=== PATIENT | female | born 1990 | race Caucasian/White ===

== ENCOUNTER 2016-07-20 10:53 | Day surgery (SDC) | payer OTHER ==
[~2016-07-20] VITALS: Ht 165.1 cm; Wt 68.0 kg
[~2016-07-20 10:53] MED LIST: AMOXICILLIN500 MG PO
[2016-07-20 11:32] VITALS: BP 123/84
[2016-07-20] MEDS ORDERED: ENDOCET 5-3251 EACH PO (12:55)
[2016-07-20 15:12] VITALS: BP 102/71
[2016-07-20 16:10] VITALS: BP 97/54
== END 2016-07-20 16:35 | disposition home or self-care (01) ==
LOC: SDC 10:53
PROC: 10D17ZZ Extraction of Products of Conception, Retained, Via Natural or Artificial Opening (ICD-10-PCS; principal; 2016-07-20)
DX: O02.1 Missed abortion (principal)
CPT/HCPCS: 88305; J0131; J1100; J1170; J1200; J1885; J2405; J3010

== ENCOUNTER 2017-09-19 05:06 | Inpatient (IN) | payer OTHER ==
[2017-09-19] VITALS (7 sets, daily range): BP systolic 97–116; BP diastolic 46–64
[~2017-09-19] VITALS: Ht 165.1 cm; Wt 92.7 kg
[~2017-09-19 05:06] MED LIST changes: +ENDOCET 5-3251 EACH PO; +FOLIC ACID0.8 MG PO; +IRON325 M1 PO; +PRENATAL VITAM1 EA10 PO; +VITAMIN D31000 UNIT PO
[2017-09-19 06:18] LABS: HEMOGLOBIN 11.7 G/DL (11.9-15.5); MCH 29.1 PG (29.0-34.0); MCHC 33.4 G/DL (30.0-36.0); MCV 87.1 FL (83-99); PLATELET COUNT 251 K/uL (156-360); RBC DIS.WIDTH-CV 14.2 % (11.8-14.6); RBC DIS.WIDTH-SD 45.1 % (39-53); RED BLOOD COUNT 4.02 M/uL (3.80-5.20); WHITE BLOOD COUNT 11.2 K/uL (4.1-10.2)
[2017-09-20 03:00] VITALS: BP 103/51
[2017-09-20 07:04] LABS: BASOPHIL (%) 0.2 % (0-1); EOSINOPHIL (%) 1.1 % (0-5); EOSINOPHIL COUNT 0.1 K/uL (0-0.3); HEMATOCRIT 26.8 % (36.0-46.0); IMMATURE GRANULOCYTE (%) 0.6 % (0.0-0.7); LYMPHOCYTE COUNT 1.4 K/uL (1.0-2.8); MCH 29.1 PG (29.0-34.0); MCHC 33.2 G/DL (30.0-36.0); MCV 87.6 FL (83-99); MONOCYTE (%) 9.1 % (3-12); MONOCYTE COUNT 0.5 K/uL (0-0.8); NEUTROPHIL COUNT 3.5 K/uL (1.8-6.4); RBC DIS.WIDTH-CV 14.3 % (11.8-14.6); RBC DIS.WIDTH-SD 45.1 % (39-53); WHITE BLOOD COUNT 5.4 K/uL (4.1-10.2)
[2017-09-20 07:05] VITALS: BP 115/58
[2017-09-20 07:08] LABS: RED BLOOD COUNT 3.06 M/uL (3.80-5.20)
[2017-09-20 07:09] LABS: HEMOGLOBIN 8.9 G/DL (11.9-15.5)
[2017-09-20 07:26] LABS: PLAT.SUFFICIENCY ADEQUATE; PLATELET CLUMPS PRESENT - PLATELET COUNT APPEARS ADQ.; PLATELET COUNT UNABLE TO REPORT K/uL (156-360)
[2017-09-20 11:10] VITALS: BP 105/59
[2017-09-20 15:23] VITALS: BP 117/62
[2017-09-20 20:28] VITALS: BP 123/63
[2017-09-20 23:46] VITALS: BP 108/55
[2017-09-21 02:34] VITALS: BP 128/58
[2017-09-21] MEDS ORDERED: IBUPROFEN800 MG PO (09:55)
[2017-09-21] MEDS ORDERED: PERCOCET 5/31 TABLET PO (09:57)
== END 2017-09-21 14:40 | disposition home or self-care (01) | DRG 765 ==
LOC: 2WEST 05:06 → 2SOUTH 13:32 → 2WEST 09-20 15:55
PROVIDERS: Obstetrics & Gynecology Obstetrics
PROC: 10D00Z1 Extraction of Products of Conception, Low, Open Approach (ICD-10-PCS; principal; 2017-09-19)
DX: O99.02 Anemia complicating childbirth (principal); O34.211 Maternal care for low transverse scar from previous cesarean delivery; D62 Acute posthemorrhagic anemia; Z3A.39 39 weeks gestation of pregnancy; Z37.0 Single live birth; O99.62 Diseases of the digestive system complicating childbirth; K66.0 Peritoneal adhesions (postprocedural) (postinfection)
CPT/HCPCS: 85025; 85027; 86850; 86900; 86901; 87086; J0131; J0330; J0690; J1170; J1200; J1885; J2250; J2274; J2405; J3010; J7120